=== PATIENT | female | born 1975 | race Caucasian/White ===

== ENCOUNTER 2016-12-19 13:18 | Emergency (ER) | payer OTHER ==
[~2016-12-19] VITALS: Ht 172.7 cm; Wt 67.4 kg
[~2016-12-19 13:18] MED LIST: ALPRAZOLAM0.25 M2 PO; ASTEPRO 0.15%30 ML NS; ERYTHROMYCIN500 M1 PO; IBUPROFEN M200 MG PO; METHYLPREDNISOLO4 MG PO; SPIRONOLACTONE100 MG PO; TRANEXAMIC ACI650 MG PO
[2016-12-19 14:26] LABS: ADD MIUA? NO; BILIRUBIN NEGATIVE; BLOOD NEGATIVE; COLOR COLORLESS ((YELLOW)); GLUCOSE (STRIP) NEGATIVE; KETONES NEGATIVE; LEUKOCYTES NEGATIVE; NITRITE NEGATIVE; PROTEIN (STRIP) NEGATIVE; SPECIFIC GRAVITY 1.005 (1.000-1.030); UCUL ADDED? NO; UROBILINOGEN 0.2 MG/DL (0.2-1.0)
[2016-12-19 14:46] LABS: HEMATOCRIT 39.2 % (36.0-46.0); MCH 30.2 PG (29.0-34.0); MCHC 32.9 G/DL (30.0-36.0); MCV 91.8 FL (83-99); MEAN PLAT.VOLUME 10.5 uM^3 (9.5-12.4); PLATELET COUNT 235 K/uL (156-360); RBC DIS.WIDTH-CV 12.7 % (11.8-14.6); RBC DIS.WIDTH-SD 42.5 % (39-53); RED BLOOD COUNT 4.27 M/uL (3.80-5.20); WHITE BLOOD COUNT 7.6 K/uL (4.1-10.2)
[2016-12-19 14:59] LABS: CHLORIDE 108 mEq/L (99-109); POTASSIUM 3.9 mEq/L (3.7-5.4); SODIUM 140 mEq/L (136-147)
[2016-12-19 15:01] LABS: GLUCOSE 90 mg/dL (70-99)
[2016-12-19 15:02] LABS: ANION GAP 8 MEQ/L (2-14)
[2016-12-19 15:03] LABS: TOTAL BILIRUBIN 0.3 mg/dL (0.0-1.0)
[2016-12-19 15:05] LABS: ALKALINE PHOSPHATASE 70 IU/L (3-129); GFR ESTIMATE (CALCULATED) > 59 mL/min/
[2016-12-19 15:06] LABS: UREA NITROGEN (BUN) 16 mg/dL (9-23)
[2016-12-19 15:11] LABS: LIPASE 28 U/L (1.0-51.0)
[2016-12-19 15:14] LABS: QUANTITATIVE HCG < 4.0 MIU/ML
[2016-12-19] MEDS ORDERED: OMEPRAZOLE40 M1 PO (16:09)
[2016-12-19 16:21] VITALS: BP 102/65
== END 2016-12-19 16:22 | disposition home or self-care (01) ==
LOC: EME 13:18
DX: K27.9 Peptic ulcer, site unspecified, unspecified as acute or chronic, without hemorrhage or perforation (principal); K29.70 Gastritis, unspecified, without bleeding; Z87.891 Personal history of nicotine dependence
CPT/HCPCS: 74022; 76705; 80053; 81003; 83690; 84702; 85027; 99281; 99284

== ENCOUNTER 2017-02-04 19:27 | Emergency (ER) | payer OTHER ==
[~2017-02-04 19:27] MED LIST changes: +OMEPRAZOLE40 M1 PO
== END 2017-02-04 19:40 | disposition left against medical advice (07) ==
LOC: EME 19:27
DX: R07.9 Chest pain, unspecified (principal); Z53.21 Procedure and treatment not carried out due to patient leaving prior to being seen by health care provider
CPT/HCPCS: 93005

== ENCOUNTER → 2017-05-16 | Outpatient (CLI) | payer OTHER | END | disposition home or self-care (01) | LOC: CDC 09:02 | DX: Z01.810 Encounter for preprocedural cardiovascular examination (principal) | CPT/HCPCS: 93000 ==

== ENCOUNTER 2017-11-19 19:12 | Emergency (ER) | payer OTHER | END 2017-11-19 20:16 | disposition left against medical advice (07) | LOC: EME 19:12 | DX: R07.9 Chest pain, unspecified (principal); R06.02 Shortness of breath; Z53.21 Procedure and treatment not carried out due to patient leaving prior to being seen by health care provider | CPT/HCPCS: 93005 ==

== ENCOUNTER 2018-01-21 20:34 | Emergency (ER) | payer OTHER ==
[~2018-01-21] VITALS: Ht 172.7 cm; Wt 70.3 kg
[2018-01-21 21:04] LABS: HEMATOCRIT 36.4 % (36.0-46.0); HEMOGLOBIN 12.3 G/DL (11.9-15.5); MCH 31.9 PG (29.0-34.0); MCHC 33.8 G/DL (30.0-36.0); MCV 94.5 FL (83-99); PLATELET COUNT 76 K/uL (156-360); RBC DIS.WIDTH-CV 12.5 % (11.8-14.6); RBC DIS.WIDTH-SD 43.2 % (39-53); RED BLOOD COUNT 3.85 M/uL (3.80-5.20); WHITE BLOOD COUNT 8.1 K/uL (4.1-10.2)
[2018-01-21 21:18] LABS: CHLORIDE 108 mEq/L (99-109); POTASSIUM 4.2 mEq/L (3.7-5.4); SODIUM 142 mEq/L (136-147)
[2018-01-21 21:20] LABS: GLUCOSE 97 mg/dL (70-99)
[2018-01-21 21:23] LABS: CREATININE 0.8 mg/dL (0.6-1.3); GFR ESTIMATE (CALCULATED) > 59 mL/min/
[2018-01-21 21:24] LABS: UREA NITROGEN (BUN) 21 mg/dL (9-23)
[2018-01-21 21:26] LABS: TROP-I INTERPRETATION NEGATIVE; TROPONIN-I < 0.01 ng/mL (0.0-0.30)
[2018-01-21] MEDS ORDERED: MEDROL DOSEPAK4 MG PO (22:29)
[2018-01-21] MEDS ORDERED: VENTOLIN HFA18 GM IH (22:29)
[2018-01-21 22:38] VITALS: BP 117/58
== END 2018-01-21 22:39 | disposition home or self-care (01) ==
LOC: EME 20:34
DX: J06.9 Acute upper respiratory infection, unspecified (principal); J98.01 Acute bronchospasm; F32.9 Major depressive disorder, single episode, unspecified; F41.9 Anxiety disorder, unspecified; Z87.891 Personal history of nicotine dependence
CPT/HCPCS: 71046; 80048; 84484; 85027; 93005; 99281; 99284